=== PATIENT | female | born 1945 | race Caucasian/White ===

== ENCOUNTER → 2016-12-20 | Outpatient (CLI) | payer MEDICARE, MEDICAID | LOC: LAB 05:05 | DX: J44.9 Chronic obstructive pulmonary disease, unspecified (principal); D64.9 Anemia, unspecified; Z79.84 Long term (current) use of oral hypoglycemic drugs ==

== ENCOUNTER 2017-01-31 09:47 | Emergency (ER) | payer MEDICARE, MEDICAID ==
[~2017-01-31] VITALS: Ht 152.4 cm; Wt 84.1 kg
[2017-01-31 10:20] LABS: BASO # 0.1 (0.02-0.10); EOS # 0.1 (0.04-0.40); EOS % 0.4 % (1.0-5.0); HEMATOCRIT 37.1 % (37.0-47.0); HEMOGLOBIN 13.2 g/dL (12.5-16.0); LYMPH# 3.1 (1.50-4.00); MEAN CELL VOLUME 129 fl (78-100); MEAN CORPUSCULAR HEMOGLOBIN 46 pg (27-31); MEAN CORPUSCULAR HGB CONC 36 g/dL (33-37); MEAN PLATELET VOLUME 9.3 fl (7.4-10.4); MONO # 1.6 (0.20-0.80); NEU # 9.2 (1.40-6.50); PLATELET COUNT 606 K/mm3 (130-400); RED BLOOD COUNT 2.87 M/mm3 (4.10-5.30); RED CELL DISTRIBUTION WIDTH 11.2 % (11.5-14.5); WHITE BLOOD COUNT 14.2 K/mm3 (4.8-10.8)
[2017-01-31 10:33] LABS: ALBUMIN 4.5 g/dL (3.5-5.0); CALCIUM 9.6 mg/dL (8.4-10.2); POTASSIUM 3.9 mmol/L (3.6-5.0); TOTAL BILIRUBIN 0.8 mg/dL (0.2-1.3); TOTAL PROTEIN 7.5 g/dL (6.3-8.2)
[2017-01-31 11:04] LABS: URINE APPEARANCE CLEAR; URINE BILIRUBIN NEGATIVE (NEGATIVE); URINE COLOR YELLOW; URINE GLUCOSE NEGATIVE (NEGATIVE); URINE KETONE NEGATIVE (NEGATIVE); URINE LEUKOCYTE ESTERASE NEGATIVE (NEGATIVE); URINE NITRATE NEGATIVE (NEGATIVE); URINE PROTEIN(semi-quant) 2+ mg/dL (NEGATIVE); URINE UROBILINOGEN NORMAL (NORMAL)
[2017-01-31 11:05] LABS: URINE BLOOD 50 ery/uL (NEGATIVE); URINE MUCUS PRESENT (NOT PRESENT)
[2017-01-31] MEDS ORDERED: FLUOXETINE HCL20 MG PO (12:54)
[2017-01-31] MEDS ORDERED: CONZIP100 MG PO (12:55)
[2017-01-31] MEDS ORDERED: ULTRAM50 M1 PO (12:55)
[2017-01-31] MEDS ORDERED: FEOSOL325 MG PO (12:55)
[2017-01-31] MEDS ORDERED: DULCOLAX10 M1 RC (12:56)
[2017-01-31] MEDS ORDERED: MIRALAX17 GM PO (12:56)
[2017-01-31] MEDS ORDERED: ALDACTONE 25MG25 MG PO (12:56)
[2017-01-31] MEDS ORDERED: B-1100 M1 PO (12:57)
[2017-01-31] MEDS ORDERED: WELLBUTRIN SR100 M4 PO (12:58)
[2017-01-31] MEDS ORDERED: SYNTHROID0.05 MG PO (12:58)
[2017-01-31] MEDS ORDERED: ADULT LOW DOSE81 MG PO (12:59)
[2017-01-31] MEDS ORDERED: NATURE'S BOUNTY1 TAB PO (13:00)
[2017-01-31] MEDS ORDERED: FEXOFENADINE H180 M1 PO (13:00)
[2017-01-31] MEDS ORDERED: FOLIC ACID1 MG PO (13:01)
[2017-01-31] MEDS ORDERED: MOBIC15 M1 PO (13:01)
[2017-01-31] MEDS ORDERED: OMEPRAZOLE D/R20 MG PO (13:01)
[2017-01-31] MEDS ORDERED: THERMOTABS 2871 TA1 PO (13:02)
[2017-01-31] MEDS ORDERED: DESYREL 50MG50 MG PO (13:02)
[2017-01-31] MEDS ORDERED: HYDROXYUREA500 M1 PO (13:02)
[2017-01-31] MEDS ORDERED: OXYCODONE HYDROC5 M1 PO (13:03)
[2017-01-31] MEDS ORDERED: COLACE100 M1 PO (13:03)
[2017-01-31] MEDS ORDERED: KEPPRA 500MG500 MG PO (15:06)
[2017-01-31] MEDS ORDERED: FLAGYL500 M1 PO (15:06)
[2017-01-31 15:15] VITALS: BP 165/77
[2017-02-01] MEDS ORDERED: OXYCODONE HYDROC5 M1 PO (11:24)
== END 2017-01-31 15:38 | disposition home or self-care (01) ==
LOC: ED 09:47
PROVIDERS: Physician Assistant
DX: R56.9 Unspecified convulsions (principal); G89.29 Other chronic pain; A59.00 Urogenital trichomoniasis, unspecified; E87.1 Hypo-osmolality and hyponatremia; I10 Essential (primary) hypertension; K21.9 Gastro-esophageal reflux disease without esophagitis; E03.9 Hypothyroidism, unspecified; D46.9 Myelodysplastic syndrome, unspecified; F31.9 Bipolar disorder, unspecified; F20.9 Schizophrenia, unspecified; D64.9 Anemia, unspecified; J44.9 Chronic obstructive pulmonary disease, unspecified; M81.0 Age-related osteoporosis without current pathological fracture
CPT/HCPCS: J1953; J2060; J3360

== ENCOUNTER 2017-02-01 10:07 | Emergency (ER) | payer MEDICARE, MEDICAID ==
[~2017-02-01] VITALS: Ht 152.4 cm; Wt 84.1 kg
[~2017-02-01 10:07] MED LIST: ADULT LOW DOSE81 MG PO; ALDACTONE 25MG25 MG PO; B-1100 M1 PO; COLACE100 M1 PO; CONZIP100 MG PO; DESYREL 50MG50 MG PO; DULCOLAX10 M1 RC; FEOSOL325 MG PO; FEXOFENADINE H180 M1 PO; FLAGYL500 M1 PO; FLUOXETINE HCL20 MG PO; FOLIC ACID1 MG PO; HYDROXYUREA500 M1 PO; KEPPRA 500MG500 MG PO; MIRALAX17 GM PO; MOBIC15 M1 PO; NATURE'S BOUNTY1 TAB PO; OMEPRAZOLE D/R20 MG PO; OXYCODONE HYDROC5 M1 PO; SYNTHROID0.05 MG PO; THERMOTABS 2871 TA1 PO; ULTRAM50 M1 PO; WELLBUTRIN SR100 M4 PO
[2017-02-01] MEDS ORDERED: OXYCODONE HYDROC5 M1 PO (11:24)
[2017-02-01 12:03] VITALS: BP 130/72
== END 2017-02-01 11:44 ==
LOC: ED 10:07
DX: X58.XXXD Exposure to other specified factors, subsequent encounter (principal); S42.302D Unspecified fracture of shaft of humerus, left arm, subsequent encounter for fracture with routine healing; I10 Essential (primary) hypertension; G40.909 Epilepsy, unspecified, not intractable, without status epilepticus; A59.00 Urogenital trichomoniasis, unspecified; K21.9 Gastro-esophageal reflux disease without esophagitis; F31.9 Bipolar disorder, unspecified; F20.9 Schizophrenia, unspecified; B19.20 Unspecified viral hepatitis C without hepatic coma; D64.9 Anemia, unspecified; J44.9 Chronic obstructive pulmonary disease, unspecified; M81.0 Age-related osteoporosis without current pathological fracture; E03.9 Hypothyroidism, unspecified; Z88.5 Allergy status to narcotic agent; Z87.891 Personal history of nicotine dependence

== ENCOUNTER → 2017-04-18 | Outpatient (CLI) | payer MEDICARE | LOC: RAD 08:59 | DX: S42.322A Displaced transverse fracture of shaft of humerus, left arm, initial encounter for closed fracture (principal) ==

== ENCOUNTER → 2017-05-16 | Outpatient (CLI) | payer MEDICARE | LOC: RAD 08:59 | DX: S42.322A Displaced transverse fracture of shaft of humerus, left arm, initial encounter for closed fracture (principal); Z96.612 Presence of left artificial shoulder joint ==

== ENCOUNTER → 2017-06-21 | Outpatient (CLI) | payer MEDICARE ==
[2017-06-21 06:15] LABS: HEMATOCRIT 32.2 % (37.0-47.0); RED BLOOD COUNT 2.48 M/mm3 (4.10-5.30); RED CELL DISTRIBUTION WIDTH 13.5 % (11.5-14.5)
[2017-06-23 00:03] LABS: FOLATE (FOLIC ACID) 16.1 ng/mL (7.0-31.4)
== END ==
LOC: LAB 05:15
PROVIDERS: Family Medicine
DX: D64.9 Anemia, unspecified (principal)

== ENCOUNTER → 2017-06-27 | Outpatient (CLI) | payer MEDICARE | LOC: RAD 09:21 | DX: S46.011A Strain of muscle(s) and tendon(s) of the rotator cuff of right shoulder, initial encounter (principal); M19.011 Primary osteoarthritis, right shoulder; M85.811 Other specified disorders of bone density and structure, right shoulder ==

== ENCOUNTER 2017-07-06 11:00 | Emergency (ER) | payer MEDICARE ==
[~2017-07-06] VITALS: Wt 82.0 kg
[2017-07-06] MEDS ORDERED: ALLEGRA ALLERG180 MG PO (11:27)
[2017-07-06] MEDS ORDERED: BENADRYL ALLERG25 M2 PO (11:29)
[2017-07-06] MEDS ORDERED: MS CONTIN 115 MG/TAB PO (11:31)
[2017-07-06] MEDS ORDERED: PEPCID 20MG TAB20 MG PO (11:33)
[2017-07-06] MEDS ORDERED: PERPHENAZINE4 M1 PO (11:33)
[2017-07-06] MEDS ORDERED: QUETIAPINE FUM200 M1 PO (11:35)
[2017-07-06] MEDS ORDERED: ALDACTONE 25MG25 MG PO (11:36)
[2017-07-06] MEDS ORDERED: VITAMIN B1 87 M1 TAB (11:37)
[2017-07-06] MEDS ORDERED: VALIUM 2MG T2 MG/TAB PO (11:37)
[2017-07-06] MEDS ORDERED: SUNMARK VITAMIN1 TAB PO (11:38)
[2017-07-06 12:05] LABS: EOS # 0.1 (0.04-0.40); EOS % 1.1 % (1.0-5.0); HEMATOCRIT 31.1 % (37.0-47.0); HEMOGLOBIN 10.9 g/dL (12.5-16.0); LYMPH# 0.9 (1.50-4.00); MEAN CORPUSCULAR HGB CONC 35 g/dL (33-37); MEAN PLATELET VOLUME 9.8 fl (7.4-10.4); MONO # 0.6 (0.20-0.80); NEU # 4.8 (1.40-6.50); PLATELET COUNT 303 K/mm3 (130-400); RED BLOOD COUNT 2.38 M/mm3 (4.10-5.30); RED CELL DISTRIBUTION WIDTH 13.1 % (11.5-14.5); WHITE BLOOD COUNT 6.5 K/mm3 (4.8-10.8)
[2017-07-06 12:06] LABS: MEAN CELL VOLUME 131 fl (78-100); MEAN CORPUSCULAR HEMOGLOBIN 46 pg (27-31)
[2017-07-06 12:17] LABS: ALBUMIN 3.5 g/dL (3.5-5.0); BUN/CREATININE RATIO 10.8 (6.0-26.0); CALCIUM 8.2 mg/dL (8.4-10.2); POTASSIUM 4.5 mmol/L (3.6-5.0); TOTAL BILIRUBIN 0.3 mg/dL (0.2-1.3); TOTAL PROTEIN 6.4 g/dL (6.3-8.2)
[2017-07-06 12:52] LABS: PH-URINE 6.5 (5.0 - 8.0); URINE APPEARANCE CLEAR; URINE COLOR YELLOW; URINE PROTEIN(semi-quant) NEGATIVE (NEGATIVE)
[2017-07-06 12:53] LABS: URINE BILIRUBIN NEGATIVE (NEGATIVE); URINE BLOOD NEGATIVE (NEGATIVE); URINE GLUCOSE NEGATIVE (NEGATIVE); URINE KETONE NEGATIVE (NEGATIVE); URINE NITRATE NEGATIVE (NEGATIVE); URINE UROBILINOGEN NORMAL (NORMAL); URINE WBC 0-1 /hpf (0-3)
[2017-07-06 12:54] LABS: URINE LEUKOCYTE ESTERASE TRACE (NEGATIVE)
[2017-07-06] MEDS ORDERED: ZITHROMAX TRI-500 MG PO (14:20)
[2017-07-06] MEDS ORDERED: IPRATROPIUM BROM3 M1 IH (14:20)
[2017-07-06] MEDS ORDERED: CEFDINIR300 MG PO (14:20)
[2017-07-06 14:26] VITALS: BP 123/64
== END 2017-07-06 14:26 | disposition home or self-care (01) ==
LOC: ED 11:00
PROVIDERS: Physician Assistant
DX: R91.8 Other nonspecific abnormal finding of lung field (principal); R09.02 Hypoxemia; F20.9 Schizophrenia, unspecified; Z99.81 Dependence on supplemental oxygen; J44.9 Chronic obstructive pulmonary disease, unspecified; I10 Essential (primary) hypertension; F31.9 Bipolar disorder, unspecified; G40.909 Epilepsy, unspecified, not intractable, without status epilepticus; K21.9 Gastro-esophageal reflux disease without esophagitis

== ENCOUNTER → 2017-07-11 | Outpatient (CLI) | payer MEDICARE ==
[2017-07-06 14:26] VITALS: BP 123/64
[~2017-07-11] MED LIST changes: +ALLEGRA ALLERG180 MG PO; +BENADRYL ALLERG25 M2 PO; +CEFDINIR300 MG PO; +IPRATROPIUM BROM3 M1 IH; +MS CONTIN 115 MG/TAB PO; +PEPCID 20MG TAB20 MG PO; +PERPHENAZINE4 M1 PO; +QUETIAPINE FUM200 M1 PO; +SUNMARK VITAMIN1 TAB PO; +VALIUM 2MG T2 MG/TAB PO; +VITAMIN B1 87 M1 TAB; +ZITHROMAX TRI-500 MG PO
[2017-07-11 06:32] LABS: ALBUMIN 3.3 g/dL (3.5-5.0); BUN/CREATININE RATIO 11.6 (6.0-26.0); CALCIUM 8.2 mg/dL (8.4-10.2); POTASSIUM 5.1 mmol/L (3.6-5.0); TOTAL BILIRUBIN 0.2 mg/dL (0.2-1.3); TOTAL PROTEIN 5.9 g/dL (6.3-8.2)
[2017-07-11 06:42] LABS: HEMATOCRIT 30.4 % (37.0-47.0); HEMOGLOBIN 10.4 g/dL (12.5-16.0); MEAN PLATELET VOLUME 9.6 fl (7.4-10.4); RED BLOOD COUNT 2.31 M/mm3 (4.10-5.30); RED CELL DISTRIBUTION WIDTH 13.4 % (11.5-14.5); WHITE BLOOD COUNT 4.2 K/mm3 (4.8-10.8)
== END ==
LOC: LAB 05:25
PROVIDERS: Family Medicine
DX: Z51.81 Encounter for therapeutic drug level monitoring (principal); Z79.899 Other long term (current) drug therapy; E03.9 Hypothyroidism, unspecified

== ENCOUNTER → 2017-09-27 | Outpatient (CLI) | payer MEDICARE | LOC: LAB 05:40 | DX: E56.9 Vitamin deficiency, unspecified (principal) ==

== ENCOUNTER → 2017-11-20 | Outpatient (CLI) | payer MEDICARE ==
[2017-11-20 14:19] LABS: URINE APPEARANCE CLEAR; URINE BILIRUBIN NEGATIVE (NEGATIVE); URINE COLOR YELLOW; URINE GLUCOSE NEGATIVE (NEGATIVE); URINE KETONE NEGATIVE (NEGATIVE); URINE NITRATE NEGATIVE (NEGATIVE); URINE PROTEIN(semi-quant) TRACE mg/dL (NEGATIVE); URINE UROBILINOGEN NORMAL (NORMAL)
[2017-11-20 14:20] LABS: URINE BLOOD NEGATIVE (NEGATIVE); URINE LEUKOCYTE ESTERASE NEGATIVE (NEGATIVE); URINE WBC 0-1 /hpf (0-3)
== END ==
LOC: LAB 13:15
PROVIDERS: Family Medicine
DX: R30.9 Painful micturition, unspecified (principal); R82.90 Unspecified abnormal findings in urine

== ENCOUNTER → 2017-11-21 | Outpatient (CLI) | payer MEDICARE ==
[2017-11-21 20:43] LABS: PH-URINE 6.5 (5.0 - 8.0); URINE APPEARANCE CLEAR; URINE BILIRUBIN NEGATIVE (NEGATIVE); URINE BLOOD NEGATIVE (NEGATIVE); URINE COLOR YELLOW; URINE GLUCOSE NEGATIVE (NEGATIVE); URINE KETONE NEGATIVE (NEGATIVE); URINE NITRATE NEGATIVE (NEGATIVE); URINE PROTEIN(semi-quant) NEGATIVE (NEGATIVE); URINE UROBILINOGEN NORMAL (NORMAL)
[2017-11-21 20:51] LABS: URINE LEUKOCYTE ESTERASE TRACE (NEGATIVE)
== END ==
LOC: LAB 16:48
PROVIDERS: Family Medicine
DX: R30.9 Painful micturition, unspecified (principal); R82.90 Unspecified abnormal findings in urine

== ENCOUNTER → 2017-11-27 | Outpatient (CLI) | payer MEDICARE ==
[2017-11-27 05:42] LABS: ALBUMIN 3.2 g/dL (3.5-5.0); CALCIUM 8.4 mg/dL (8.4-10.2); POTASSIUM 4.4 mmol/L (3.6-5.0); TOTAL BILIRUBIN 0.5 mg/dL (0.2-1.3); TOTAL PROTEIN 5.8 g/dL (6.3-8.2)
== END ==
LOC: LAB 05:15
PROVIDERS: Family Medicine
DX: M62.81 Muscle weakness (generalized) (principal)

== ENCOUNTER → 2017-12-19 | Outpatient (CLI) | payer MEDICARE ==
[2017-12-19 06:57] LABS: CALCIUM 8.4 mg/dL (8.4-10.2); POTASSIUM 4.5 mmol/L (3.6-5.0)
== END ==
LOC: LAB 06:22
PROVIDERS: Family Medicine
DX: E87.1 Hypo-osmolality and hyponatremia (principal)

== ENCOUNTER → 2018-01-12 | Outpatient (CLI) | payer MEDICARE ==
[2018-01-12 15:17] LABS: HEMATOCRIT 36.7 % (37.0-47.0); HEMOGLOBIN 12.6 g/dL (12.5-16.0); MEAN PLATELET VOLUME 9.9 fl (7.4-10.4); RED BLOOD COUNT 2.85 M/mm3 (4.10-5.30); RED CELL DISTRIBUTION WIDTH 11.4 % (11.5-14.5); WHITE BLOOD COUNT 5.3 K/mm3 (4.8-10.8)
== END ==
LOC: LAB 13:40
PROVIDERS: Family Medicine
DX: I10 Essential (primary) hypertension (principal); F20.9 Schizophrenia, unspecified; E03.9 Hypothyroidism, unspecified

== ENCOUNTER → 2018-01-14 | Outpatient (CLI) | payer MEDICARE ==
[2018-01-11 08:58] LABS: ALBUMIN 3.5 g/dL (3.5-5.0); CALCIUM 8.6 mg/dL (8.4-10.2); POTASSIUM 4.6 mmol/L (3.6-5.0); TOTAL BILIRUBIN 0.6 mg/dL (0.2-1.3); TOTAL PROTEIN 6.3 g/dL (6.3-8.2)
== END ==
LOC: LAB 01-11 07:15
PROVIDERS: Family Medicine
DX: I10 Essential (primary) hypertension (principal); F20.9 Schizophrenia, unspecified; E03.9 Hypothyroidism, unspecified

== ENCOUNTER 2018-01-31 11:34 | Emergency (ER) | payer MEDICARE ==
[~2018-01-31] VITALS: Ht 152.4 cm; Wt 85.9 kg
[2018-01-31] MEDS ORDERED: ASPIRIN ADULT L81 M3 PO (12:41)
[2018-01-31] MEDS ORDERED: FLEET ENEM1 BOT/133 RC (12:42)
[2018-01-31] MEDS ORDERED: FLONASE SENSIM5.9 ML NS (12:43)
[2018-01-31] MEDS ORDERED: IMODIUM A-D2 M2 PO (12:44)
[2018-01-31] MEDS ORDERED: FLORAJEN A20 Billion PO (12:44)
[2018-01-31] MEDS ORDERED: GOOD NEIGH1200 MG/15 PO (12:45)
[2018-01-31] MEDS ORDERED: MOVANTIK25 MG PO (12:45)
[2018-01-31] MEDS ORDERED: NYSTATIN15 GM TP (12:46)
[2018-01-31] MEDS ORDERED: SARNA ANTI-ITC222 ML TP (12:46)
[2018-01-31] MEDS ORDERED: PROTONIX TR40 M1 PO (12:46)
[2018-01-31] MEDS ORDERED: SENNA8.6 M1 PO (12:47)
[2018-01-31] MEDS ORDERED: TYLENOL EXTRA500 M2 PO (12:48)
[2018-01-31] MEDS ORDERED: SYNTHROID0.05 MG PO (12:48)
[2018-01-31] MEDS ORDERED: ZOFRAN4 M2 PO (12:49)
[2018-01-31 15:31] VITALS: BP 136/67
== END 2018-01-31 15:30 | disposition short-term general hospital (02) ==
LOC: ED 11:34
DX: S43.014A Anterior dislocation of right humerus, initial encounter (principal); S42.291A Other displaced fracture of upper end of right humerus, initial encounter for closed fracture; M84.4 Pathological fracture, not elsewhere classified; W01.0XXA Fall on same level from slipping, tripping and stumbling without subsequent striking against object, initial encounter; Y92.009 Unspecified place in unspecified non-institutional (private) residence as the place of occurrence of the external cause; Z79.899 Other long term (current) drug therapy; Z79.82 Long term (current) use of aspirin; K75.9 Inflammatory liver disease, unspecified
CPT/HCPCS: J2250; J2405; J3010

== ENCOUNTER 2018-02-27 18:08 | Emergency (ER) | payer MEDICARE ==
[~2018-02-27] VITALS: Wt 90.2 kg
[~2018-02-27 18:08] MED LIST changes: +ASPIRIN ADULT L81 M3 PO; +FLEET ENEM1 BOT/133 RC; +FLONASE SENSIM5.9 ML NS; +FLORAJEN A20 Billion PO; +GOOD NEIGH1200 MG/15 PO; +IMODIUM A-D2 M2 PO; +MOVANTIK25 MG PO; -MS CONTIN 115 MG/TAB PO; +MS CONTIN15 MG PO; +NYSTATIN15 GM TP; +PROTONIX TR40 M1 PO; -QUETIAPINE FUM200 M1 PO; +QUETIAPINE FUM400 M1 PO; +SARNA ANTI-ITC222 ML TP; +SENNA8.6 M1 PO; +TYLENOL EXTRA500 M2 PO; +ZOFRAN4 M2 PO
[2018-02-27 19:52] LABS: HEMATOCRIT 39.2 % (37.0-47.0); HEMOGLOBIN 13.3 g/dL (12.5-16.0); MEAN CORPUSCULAR HGB CONC 34 g/dL (33-37); MEAN PLATELET VOLUME 9.7 fl (7.4-10.4); PLATELET COUNT 371 K/mm3 (130-400); RED BLOOD COUNT 3.05 M/mm3 (4.10-5.30); RED CELL DISTRIBUTION WIDTH 11.5 % (11.5-14.5); WHITE BLOOD COUNT 4.8 K/mm3 (4.8-10.8)
[2018-02-27 20:02] LABS: MEAN CELL VOLUME 129 fl (78-100); MEAN CORPUSCULAR HEMOGLOBIN 44 pg (27-31)
[2018-02-27] MEDS ORDERED: IPRATROPIUM BROM3 M1 IH (20:03)
[2018-02-27] MEDS ORDERED: NYSTATIN15 GM TOP (20:06)
[2018-02-27] MEDS ORDERED: THERMOTABS 2871 TA1 PO (20:08)
[2018-02-27 20:22] LABS: LYMPHOCYTE 19 % (20-51); NEUTROPHILS 65 % (42-75)
[2018-02-27 20:23] LABS: MONOCYTE 13 % (3-10); POLYCHROMASIA 1+
[2018-02-27 20:27] LABS: TROPONIN-I < 0.03 ng/mL (0.00-0.06)
[2018-02-27 20:28] LABS: URINE APPEARANCE CLEAR; URINE BILIRUBIN NEGATIVE (NEGATIVE); URINE BLOOD NEGATIVE (NEGATIVE); URINE COLOR YELLOW; URINE GLUCOSE NEGATIVE (NEGATIVE); URINE KETONE NEGATIVE (NEGATIVE); URINE LEUKOCYTE ESTERASE NEGATIVE (NEGATIVE); URINE NITRATE NEGATIVE (NEGATIVE); URINE PROTEIN(semi-quant) NEGATIVE (NEGATIVE); URINE UROBILINOGEN NORMAL (NORMAL); URINE WBC 0-1 /hpf (0-3)
[2018-02-27 20:41] LABS: ALBUMIN 4.4 g/dL (3.5-5.0); POTASSIUM 4.1 mmol/L (3.6-5.0); TOTAL BILIRUBIN 0.5 mg/dL (0.2-1.3); TOTAL PROTEIN 7.2 g/dL (6.3-8.2)
[2018-02-27] MEDS ORDERED: CHLORASEPTIC S177 ML MM (23:13)
[2018-02-27] MEDS ORDERED: FLUTICASON0.05 MG/AC NS (23:13)
[2018-02-27] MEDS ORDERED: AMOXIL500 M1 PO (23:13)
[2018-02-27 23:30] VITALS: BP 152/76
== END 2018-02-27 23:30 | disposition home or self-care (01) ==
LOC: ED 18:08
PROVIDERS: Physician Assistant
DX: J02.9 Acute pharyngitis, unspecified (principal); J44.9 Chronic obstructive pulmonary disease, unspecified; J32.0 Chronic maxillary sinusitis; Z87.891 Personal history of nicotine dependence; G40.909 Epilepsy, unspecified, not intractable, without status epilepticus; F20.9 Schizophrenia, unspecified; F31.9 Bipolar disorder, unspecified; E03.9 Hypothyroidism, unspecified; K21.9 Gastro-esophageal reflux disease without esophagitis; Z99.81 Dependence on supplemental oxygen; Z79.82 Long term (current) use of aspirin; Z79.899 Other long term (current) drug therapy

== ENCOUNTER → 2018-03-08 | Outpatient (CLI) | payer MEDICARE ==
[2018-02-27 23:30] VITALS: BP 152/76
[~2018-03-08] MED LIST changes: +AMOXIL500 M1 PO; +CHLORASEPTIC S177 ML MM; +FLUTICASON0.05 MG/AC NS; +NYSTATIN15 GM TOP
[2018-03-08 09:11] LABS: HEMATOCRIT 39.1 % (37.0-47.0); HEMOGLOBIN 13.7 g/dL (12.5-16.0); MEAN PLATELET VOLUME 9.8 fl (7.4-10.4); RED BLOOD COUNT 3.09 M/mm3 (4.10-5.30); RED CELL DISTRIBUTION WIDTH 11.3 % (11.5-14.5); WHITE BLOOD COUNT 6.3 K/mm3 (4.8-10.8)
== END ==
LOC: LAB 08:10
PROVIDERS: Family Medicine
DX: D69.6 Thrombocytopenia, unspecified (principal)

== ENCOUNTER → 2018-06-05 | Outpatient (CLI) | payer MEDICARE, MEDICAID ==
[2018-06-05 08:24] LABS: ALBUMIN 3.8 g/dL (3.5-5.0); POTASSIUM 4.6 mmol/L (3.6-5.0); TOTAL BILIRUBIN 0.6 mg/dL (0.2-1.3); TOTAL PROTEIN 6.7 g/dL (6.3-8.2)
[2018-06-05 09:10] LABS: BASO # 0.1 (0.02-0.10); EOS # 0.1 (0.04-0.40); HEMATOCRIT 35.7 % (37.0-47.0); HEMOGLOBIN 12.3 g/dL (12.5-16.0); LYMPH# 1.1 (1.50-4.00); MEAN CORPUSCULAR HGB CONC 35 g/dL (33-37); MEAN PLATELET VOLUME 10.2 fl (7.4-10.4); MONO # 0.7 (0.20-0.80); NEU # 3.7 (1.40-6.50); PLATELET COUNT 362 K/mm3 (130-400); RED BLOOD COUNT 2.73 M/mm3 (4.10-5.30); RED CELL DISTRIBUTION WIDTH 12.1 % (11.5-14.5); WHITE BLOOD COUNT 5.6 K/mm3 (4.8-10.8)
[2018-06-05 09:11] LABS: MEAN CELL VOLUME 131 fl (78-100); MEAN CORPUSCULAR HEMOGLOBIN 45 pg (27-31)
== END ==
LOC: LAB 06:25
PROVIDERS: Internal Medicine
DX: D46.9 Myelodysplastic syndrome, unspecified (principal)

== ENCOUNTER 2018-07-12 12:40 | Emergency (ER) | payer MEDICARE, MEDICAID ==
[~2018-07-12 12:40] MED LIST changes: -GUAIFENESIN ER600 M1 PO
[2018-07-12] MEDS ORDERED: GUAIFENESIN ER600 M1 PO (13:10)
[2018-07-12 14:24] LABS: EOS # 0.1 (0.04-0.40); EOS % 1.9 % (1.0-5.0); HEMATOCRIT 36.5 % (37.0-47.0); HEMOGLOBIN 12.3 g/dL (12.5-16.0); LYMPH# 1.1 (1.50-4.00); MEAN CORPUSCULAR HGB CONC 34 g/dL (33-37); MEAN PLATELET VOLUME 9.4 fl (7.4-10.4); MONO # 0.7 (0.20-0.80); NEU # 4.3 (1.40-6.50); PLATELET COUNT 339 K/mm3 (130-400); RED BLOOD COUNT 2.76 M/mm3 (4.10-5.30); RED CELL DISTRIBUTION WIDTH 11.5 % (11.5-14.5); WHITE BLOOD COUNT 6.3 K/mm3 (4.8-10.8)
[2018-07-12 14:45] LABS: MEAN CELL VOLUME 132 fl (78-100); MEAN CORPUSCULAR HEMOGLOBIN 45 pg (27-31)
[2018-07-12 15:01] LABS: PROTHROMBIN TIME 10.3 SECONDS (9.0-12.0)
[2018-07-12 15:03] LABS: ALBUMIN 3.8 g/dL (3.5-5.0); CALCIUM 8.5 mg/dL (8.4-10.2); POTASSIUM 4.4 mmol/L (3.6-5.0); TOTAL BILIRUBIN 0.3 mg/dL (0.2-1.3); TOTAL PROTEIN 6.4 g/dL (6.3-8.2)
[2018-07-12 16:36] VITALS: BP 156/87
== END 2018-07-12 15:50 | disposition home or self-care (01) ==
LOC: ED 12:40
PROVIDERS: Nurse Practitioner Primary Care
DX: R10.84 Generalized abdominal pain (principal); K21.9 Gastro-esophageal reflux disease without esophagitis; J44.9 Chronic obstructive pulmonary disease, unspecified; F20.9 Schizophrenia, unspecified; F06.2 Psychotic disorder with delusions due to known physiological condition; F31.9 Bipolar disorder, unspecified; E03.9 Hypothyroidism, unspecified; D64.9 Anemia, unspecified; Z96.619 Presence of unspecified artificial shoulder joint; Z79.82 Long term (current) use of aspirin; Z79.51 Long term (current) use of inhaled steroids
CPT/HCPCS: Q9967

== ENCOUNTER → 2018-07-12 | Outpatient (CLI) | payer MEDICARE, MEDICAID ==
[~2018-07-12] MED LIST changes: +GUAIFENESIN ER600 M1 PO
[2018-07-12 07:20] LABS: ALBUMIN 4.4 g/dL (3.5-5.0); TOTAL BILIRUBIN 0.5 mg/dL (0.2-1.3); TOTAL PROTEIN 7.8 g/dL (6.3-8.2)
== END ==
LOC: LAB 06:50
PROVIDERS: Family Medicine
DX: S42.302A Unspecified fracture of shaft of humerus, left arm, initial encounter for closed fracture (principal); J30.9 Allergic rhinitis, unspecified; R25.1 Tremor, unspecified; E11.9 Type 2 diabetes mellitus without complications; E03.9 Hypothyroidism, unspecified; F20.9 Schizophrenia, unspecified; R11.0 Nausea

== ENCOUNTER → 2018-09-04 | Outpatient (CLI) | payer MEDICARE ==
[~2018-09-04] MED LIST changes: +GUAIFENESIN ER600 M1 PO; +LORAZEPAM0.5 M1 PO; +MS CONTIN 115 MG/TAB PO; +RT ADVAIR HFA 1112 G IH; +SUCRETS SORE THR2 MG MM; +TRAMADOL 50 MG TAB PO; +VOLTAREN GEL1% TP; +XYZAL5 MG PO
== END ==
LOC: RAD 13:16
DX: J43.9 Emphysema, unspecified (principal); R91.1 Solitary pulmonary nodule; G47.33 Obstructive sleep apnea (adult) (pediatric)

== ENCOUNTER 2018-09-07 16:53 | Emergency (ER) | payer MEDICARE ==
[~2018-09-07] VITALS: Ht 144.8 cm; Wt 91.5 kg
[~2018-09-07 16:53] MED LIST changes: -LORAZEPAM0.5 M1 PO; -MS CONTIN 115 MG/TAB PO; -RT ADVAIR HFA 1112 G IH; -SUCRETS SORE THR2 MG MM; -TRAMADOL 50 MG TAB PO; -VOLTAREN GEL1% TP; -XYZAL5 MG PO
[2018-09-07 17:15] VITALS: BP 153/83
[2018-09-07] MEDS ORDERED: LORAZEPAM0.5 M1 PO (17:42)
[2018-09-07] MEDS ORDERED: RT ADVAIR HFA 1112 G IH (17:43)
[2018-09-07] MEDS ORDERED: MS CONTIN 115 MG/TAB PO (17:44)
[2018-09-07] MEDS ORDERED: SUCRETS SORE THR2 MG MM (17:45)
[2018-09-07] MEDS ORDERED: TRAMADOL 50 MG TAB PO (17:47)
[2018-09-07] MEDS ORDERED: VOLTAREN GEL1% TP (17:50)
[2018-09-07] MEDS ORDERED: XYZAL5 MG PO (17:51)
[2018-09-07 19:43] LABS: HEMATOCRIT 35.1 % (37.0-47.0); HEMOGLOBIN 11.7 g/dL (12.5-16.0); MEAN CORPUSCULAR HGB CONC 33 g/dL (33-37); MEAN PLATELET VOLUME 9.5 fl (7.4-10.4); PLATELET COUNT 332 K/mm3 (130-400); RED BLOOD COUNT 2.68 M/mm3 (4.10-5.30); RED CELL DISTRIBUTION WIDTH 12.3 % (11.5-14.5); WHITE BLOOD COUNT 5.8 K/mm3 (4.8-10.8)
[2018-09-07 20:09] LABS: MEAN CELL VOLUME 131 fl (78-100); MEAN CORPUSCULAR HEMOGLOBIN 44 pg (27-31)
[2018-09-07 20:11] LABS: CALCIUM 8.4 mg/dL (8.3-10.5)
[2018-09-07 20:38] LABS: LYMPHOCYTE 11 % (20-51); MONOCYTE 15 % (3-10); NEUTROPHILS 66 % (42-75)
== END 2018-09-07 21:30 | disposition home or self-care (01) ==
LOC: ED 16:53
PROVIDERS: Family Medicine
DX: R06.00 Dyspnea, unspecified (principal); M79.604 Pain in right leg; K21.9 Gastro-esophageal reflux disease without esophagitis; J44.9 Chronic obstructive pulmonary disease, unspecified; F31.9 Bipolar disorder, unspecified; F20.9 Schizophrenia, unspecified; R56.9 Unspecified convulsions; M81.0 Age-related osteoporosis without current pathological fracture; D69.6 Thrombocytopenia, unspecified; Z79.51 Long term (current) use of inhaled steroids; Z79.82 Long term (current) use of aspirin; W01.0XXA Fall on same level from slipping, tripping and stumbling without subsequent striking against object, initial encounter; Y93.E1 Activity, personal bathing and showering; Y92.002 Bathroom of unspecified non-institutional (private) residence as the place of occurrence of the external cause

== ENCOUNTER → 2018-12-04 | Outpatient (CLI) | payer MEDICARE ==
[~2018-12-04] MED LIST changes: +LORAZEPAM0.5 M1 PO; +MS CONTIN 115 MG/TAB PO; +RT ADVAIR HFA 1112 G IH; +SUCRETS SORE THR2 MG MM; +TRAMADOL 50 MG TAB PO; +VOLTAREN GEL1% TP; +XYZAL5 MG PO
== END ==
LOC: LAB 05:40
PROVIDERS: Internal Medicine
DX: C34.91 Malignant neoplasm of unspecified part of right bronchus or lung (principal)

== ENCOUNTER → 2018-12-06 | Outpatient (CLI) | payer MEDICARE ==
[2018-12-06 07:16] LABS: EOS # 0.1 (0.04-0.40); EOS % 2.4 % (1.0-5.0); HEMATOCRIT 36.1 % (37.0-47.0); HEMOGLOBIN 11.8 g/dL (12.5-16.0); LYMPH# 0.9 (1.50-4.00); MEAN CORPUSCULAR HGB CONC 33 g/dL (33-37); MEAN PLATELET VOLUME 9.6 fl (7.4-10.4); MONO # 0.6 (0.20-0.80); NEU # 3.9 (1.40-6.50); PLATELET COUNT 303 K/mm3 (130-400); RED BLOOD COUNT 2.72 M/mm3 (4.10-5.30); RED CELL DISTRIBUTION WIDTH 13.6 % (11.5-14.5); WHITE BLOOD COUNT 5.5 K/mm3 (4.8-10.8)
[2018-12-06 07:42] LABS: MEAN CELL VOLUME 133 fl (78-100); MEAN CORPUSCULAR HEMOGLOBIN 43 pg (27-31)
== END ==
LOC: LAB 06:45
PROVIDERS: Family Medicine
DX: D46.9 Myelodysplastic syndrome, unspecified (principal)

== ENCOUNTER → 2019-01-13 | Outpatient (CLI) | payer MEDICARE ==
[2019-01-13 08:17] LABS: ALBUMIN 3.9 g/dL (3.4-4.8); CALCIUM 9.2 mg/dL (8.3-10.5); POTASSIUM 4.3 mmol/L (3.5-5.1); TOTAL BILIRUBIN 0.7 mg/dL (0.2-1.2); TOTAL PROTEIN 6.7 g/dL (6.2-8.1)
[2019-01-13 08:24] LABS: HEMATOCRIT 39.1 % (37.0-47.0); MEAN PLATELET VOLUME 10.3 fl (7.4-10.4); RED BLOOD COUNT 2.94 M/mm3 (4.10-5.30); RED CELL DISTRIBUTION WIDTH 12.8 % (11.5-14.5)
== END ==
LOC: LAB 07:37
PROVIDERS: Family Medicine
DX: Z51.81 Encounter for therapeutic drug level monitoring (principal); D64.9 Anemia, unspecified

== ENCOUNTER → 2019-01-14 | Outpatient (CLI) | payer MEDICARE ==
[2019-01-14 15:46] LABS: FOLATE (FOLIC ACID) 18.3 ng/mL (7.0-31.4)
== END ==
LOC: LAB 05:30
PROVIDERS: Family Medicine
DX: D64.9 Anemia, unspecified (principal)

== ENCOUNTER 2019-03-12 14:50 | Emergency (ER) | payer MEDICARE ==
[~2019-03-12] VITALS: Wt 96.3 kg
[~2019-03-12 14:50] MED LIST changes: -DESYREL 50MG50 MG PO; +DESYREL50 MG PO; +DULCOLAX S10 MG/SUPP RC; -DULCOLAX10 M1 RC; -FLUOXETINE HCL20 MG PO; +FLUOXETINE60 MG PO; -SUNMARK VITAMIN1 TAB PO
[2019-03-12 15:29] LABS: HEMATOCRIT 36.9 % (37.0-47.0); HEMOGLOBIN 12.4 g/dL (12.5-16.0); MEAN CORPUSCULAR HGB CONC 34 g/dL (33-37); MEAN PLATELET VOLUME 10.1 fl (7.4-10.4); PLATELET COUNT 170 K/mm3 (130-400); RED BLOOD COUNT 2.78 M/mm3 (4.10-5.30); RED CELL DISTRIBUTION WIDTH 12.7 % (11.5-14.5); WHITE BLOOD COUNT 4.2 K/mm3 (4.8-10.8)
[2019-03-12 15:38] LABS: MEAN CELL VOLUME 133 fl (78-100); MEAN CORPUSCULAR HEMOGLOBIN 45 pg (27-31)
[2019-03-12 15:47] LABS: ALBUMIN 3.6 g/dL (3.4-4.8); POTASSIUM 4.6 mmol/L (3.5-5.1)
[2019-03-12 15:48] LABS: CALCIUM 8.4 mg/dL (8.3-10.5)
[2019-03-12 15:50] LABS: TOTAL PROTEIN 5.6 g/dL (6.2-8.1)
[2019-03-12 15:51] LABS: TOTAL BILIRUBIN 0.4 mg/dL (0.2-1.2)
[2019-03-12] MEDS ORDERED: ATIVAN0.5 MG PO (16:21)
[2019-03-12 16:22] LABS: LYMPHOCYTE 12 % (20-51); MONOCYTE 12 % (3-10); NEUTROPHILS 73 % (42-75); POLYCHROMASIA 1+
[2019-03-12] MEDS ORDERED: IPRATROPIUM BROM3 M1 IH (16:23)
[2019-03-12] MEDS ORDERED: FLONASE ALLERG9.9 ML NS (16:25)
[2019-03-12] MEDS ORDERED: KEPPRA 500MG500 MG PO (16:27)
[2019-03-12] MEDS ORDERED: MECLIZINE PO (16:28)
[2019-03-12 16:50] VITALS: BP 133/73
== END 2019-03-12 16:59 | disposition other institution (70) ==
LOC: ED 14:50
PROVIDERS: Physician Assistant
DX: J44.1 Chronic obstructive pulmonary disease with (acute) exacerbation (principal); K21.9 Gastro-esophageal reflux disease without esophagitis; M81.0 Age-related osteoporosis without current pathological fracture; F31.9 Bipolar disorder, unspecified; D46.9 Myelodysplastic syndrome, unspecified; F20.9 Schizophrenia, unspecified; D69.6 Thrombocytopenia, unspecified; Z79.82 Long term (current) use of aspirin
CPT/HCPCS: J2930

== ENCOUNTER 2019-03-12 16:21 | Inpatient (IN) | payer MEDICARE ==
[~2019-03-12] VITALS: Ht 152.4 cm; Wt 96.0 kg
[~2019-03-12 16:21] MED LIST changes: +ATIVAN0.5 MG PO
[2019-03-12] MEDS ORDERED: IPRATROPIUM BROM3 M1 IH (16:23)
[2019-03-12] MEDS ORDERED: FLONASE ALLERG9.9 ML NS (16:25)
[2019-03-12] MEDS ORDERED: KEPPRA 500MG500 MG PO (16:27)
[2019-03-12] MEDS ORDERED: MECLIZINE PO (16:28)
[2019-03-12 17:11] VITALS: BP 133/73
[2019-03-12 17:17] VITALS: BP 110/68
[2019-03-12 18:10] VITALS: BP 133/73
[2019-03-12 21:00] LABS: URINE APPEARANCE CLEAR; URINE BILIRUBIN NEGATIVE (NEGATIVE); URINE BLOOD NEGATIVE (NEGATIVE); URINE COLOR YELLOW; URINE GLUCOSE NEGATIVE (NEGATIVE); URINE KETONE NEGATIVE (NEGATIVE); URINE LEUKOCYTE ESTERASE NEGATIVE (NEGATIVE); URINE NITRATE NEGATIVE (NEGATIVE); URINE PROTEIN(semi-quant) TRACE mg/dL (NEGATIVE); URINE UROBILINOGEN NORMAL (NORMAL); URINE WBC 0-1 /hpf (0-3)
[2019-03-12 21:44] VITALS: BP 146/79
--- NOTE | 2019-03-12 23:45 | NUR ---
Report received. Pt awake and completing neb tx when checked on rounds. Color good and resp. unlabored. Assessment done. Denied discomfort. Denied cough; informed of order for sputum specimen and will assist with collecting this should she have cough that may produce sputum. CPAP on after assessment. Call light in reach.
[2019-03-13 02:48] VITALS: BP 123/78
[2019-03-13 05:57] LABS: HEMATOCRIT 34.9 % (37.0-47.0); HEMOGLOBIN 11.8 g/dL (12.5-16.0); MEAN CORPUSCULAR HGB CONC 34 g/dL (33-37); MEAN PLATELET VOLUME 9.9 fl (7.4-10.4); PLATELET COUNT 205 K/mm3 (130-400); RED BLOOD COUNT 2.64 M/mm3 (4.10-5.30); RED CELL DISTRIBUTION WIDTH 12.2 % (11.5-14.5); WHITE BLOOD COUNT 4.6 K/mm3 (4.8-10.8)
[2019-03-13 06:11] VITALS: BP 145/78
[2019-03-13 06:24] LABS: MEAN CELL VOLUME 132 fl (78-100); MEAN CORPUSCULAR HEMOGLOBIN 45 pg (27-31)
[2019-03-13 06:42] LABS: LYMPHOCYTE 4 % (20-51); MONOCYTE 2 % (3-10); NEUTROPHILS 94 % (42-75)
[2019-03-13 06:44] LABS: POLYCHROMASIA 1+
[2019-03-13 06:45] LABS: OVALOCYTES 1+
[2019-03-13 06:53] LABS: POTASSIUM 4.6 mmol/L (3.5-5.1)
[2019-03-13 06:54] LABS: CALCIUM 8.4 mg/dL (8.3-10.5)
[2019-03-13 10:20] VITALS: BP 116/71
[2019-03-13 13:41] VITALS: BP 149/79
[2019-03-13 17:01] VITALS: BP 127/71
--- NOTE | 2019-03-13 18:55 | NUR ---
THIS RN WAS UNABLE TO COLLECT ORDERED SPUTUM SAMPLE THROUGHOUT SHIFT. PT WITHOUT PRODUCTIVE COUGH.
--- NOTE | 2019-03-13 19:00 | NUR ---
Report provided by MELYSSA Cat.
--- NOTE | 2019-03-13 21:30 | NUR ---
Upon assessment patient educated to keep O2 via nasal cannula on nostrils (running at 2L). Patient's lungs clear and no SOB. Patient at a 4/10 in L shoulder. Medication provided and patient repositioned. INT in R forearm patent. Patient reminded to provided a sputum sample if coughs anything up. Patient confirmed understanding.
[2019-03-13 22:11] VITALS: BP 96/57
--- NOTE | 2019-03-14 00:31 | NUR ---
Patient asleep in bed. CPAP machine on and properly positioned on patient's face.
[2019-03-14 02:00] VITALS: BP 137/71
--- NOTE | 2019-03-14 03:33 | NUR ---
Patient asleep with cpap in place.
[2019-03-14 05:41] VITALS: BP 123/77
--- NOTE | 2019-03-14 07:22 | NUR ---
Report given to MELYSSA Delatorre.
--- NOTE | 2019-03-14 08:00 | NUR ---
SEO ANALYST REPORTS PT HAS A STRONG WET COUGH, THIS NURSE COMPLETED COMPLEX ASSESSMENT, LUNGS COARSE THROUGHOUT WITH WHEEZES, PT BREATHING ON 2L O2 VIA NC, O2 SAT 94%, SIGNIFICANTLY MORE SOB WITH EXERTION, AURELIA LANG REQUESTING TO KEEP PT RATHER THAN DC BACK TO [facility] TODAY ORIGINIALLY PLANNED, PT AGREEABLE
[2019-03-14 10:05] VITALS: BP 119/66
[2019-03-14 14:20] VITALS: BP 138/79
--- NOTE | 2019-03-14 16:43 | NUR ---
PT NEEDS FREQUENT MOTIVATION TO MOVE FROM BED, RESISTANT TO HYGIENE AND ORAL CARES, RESISTANT TO SIT UP IN CHAIR MOST OF SHIFT, AGREES TO SIT UP IN CHAIR FOR SUPPER, THIS NURSE OPENED BLINDS TO ALLOW SUNLIGHT IN AND IS REQUESTING PT LEAVE HER LIGHTS ON FOR A WHILE IN ATTEMPTS TO HELP BRIGHTEN HER MOOD, WILL CONTINUE TO MOTIVATE PT FREQUENTLY
--- NOTE | 2019-03-14 17:18 | NUR ---
PT UP WALKING IN ROOM TO AND FROM RESTROOM, AGREED TO SIT UP FOR SUPPER, SMILING AFFECT, APPEARS TO BE MORE ALERT AND AGREEABLE TO MOVING AROUND ROOM, UNSTEADY SLOW GAIT WITH 1:1 ASSIST USING GAIT BELT AND WALKER
[2019-03-14 18:32] VITALS: BP 152/77
--- NOTE | 2019-03-14 19:00 | NUR ---
Report provided by MELYSSA Delatorre.
--- NOTE | 2019-03-14 19:45 | NUR ---
Patient laying supine in bed with O2 at 2L via NC. Patient reports pain in knees, ankles and arms. Patient educated that movement and changing positions will help encourage circulation and muscle strength and may reduce some of her pain. Lungs ausculated and show wheezes in Upper lobes. Patient educated that sitting up and IS and movement will help her lungs improve as well. Patient assisted to the bathroom and then the chair. Patient wanted to take her breathing treatments lying down in bed. Educated patient again on the importance of encouraging her airway and breathing through sitting up so as to allow air in her passageways more effectively. Patient agreed to stay sitting during the treatment at the chair. Patient did not want to stay in chair after medications were taken but agreed to stay sitting up until 2130 then she wanted to lay down again. Patient has +1 edema bilateral in lower extremities. She also stated that she feels constipated/bloated. Miralax provided along with her pain medication and other medications.
--- NOTE | 2019-03-14 21:15 | NUR ---
Patient returned to bed per request. O2 at 2L via NC.
[2019-03-14 21:41] VITALS: BP 120/62
--- NOTE | 2019-03-15 | NUR ---
Patient asleep in bed, supine with NC at 2L of 02. Patient non-compliant with CPAP.
--- NOTE | 2019-03-15 02:40 | NUR ---
Patient up to go tot bathroom after being woken up for vitals. Patient STBA back to bed. Patient educated on CPAP again. Regular NC removed and CPAP provided with O2 at 2L via full face mask of CPAP. Patient assisted with CPAP. Oxygen levels maintained at 92-93%.
[2019-03-15 02:41] VITALS: BP 119/69
[2019-03-15 05:45] VITALS: BP 131/74
--- NOTE | 2019-03-15 07:23 | NUR ---
Report to MELYSSA Ballesteros.
--- NOTE | 2019-03-15 07:30 | NUR ---
Report received from Adelaida Serrano RN and care assumed. Pt resting in bed with eyes closed and oxygen in place. No signs of distress or discomfort noted at this time. Call light in reach, bed alarm on.
[2019-03-15 10:06] VITALS: BP 127/80
--- NOTE | 2019-03-15 13:40 | NUR ---
Report given to Edis Quan and care transferred at this time. Pt resting in bed, no needs or concerns at this time. Eyes closed and no signs of distress or discomfort noted. Call light in reach, bed alarm on.
[2019-03-15 14:26] VITALS: BP 137/89
[2019-03-15] MEDS ORDERED: ZITHROMAX 250M250 MG PO (16:35)
[2019-03-15] MEDS ORDERED: PREDNISONE20 M1 PO (16:36)
[2019-03-15] MEDS ORDERED: CEFDINIR300 MG PO (16:36)
--- NOTE | 2019-03-15 18:19 | NUR ---
THIS RN GIVES HILARY CASTILLO REPORT ON THIS PT THE PT IS BEING DISCHARGED BACK TO [facility] WHERE THE PT RESIDES. JONATHAN DENIES HAVING ANY QUESTIONS OR CONCERNS AT THIS TIME.
--- NOTE | 2019-03-15 18:22 | NUR ---
THIS RN FAXES PT'S PRESCRIPTIONS TO [place] [facility] [place] PER REQUEST OF JONTAHAN AT [facility].
[2019-03-15 18:34] VITALS: BP 151/94
--- NOTE | 2019-03-15 19:55 | NUR ---
IV removed earlier this night with clear drainage when flushed; no errythema or edema at R a/c site noted. Pt was discharged per order; instructions given by another nurse--phoned to the nurse at [facility] facility (returning to same facility). Pt also understands discharge to return to same facility. Pt was escorted to that facility by staff member from this facility and from the LTC facility, taken via w/c with all belongings.
== END 2019-03-15 19:25 | DRG 192 ==
LOC: MED/SURG 16:21
PROVIDERS: ADMIT Physician Assistant
DX: J44.1 Chronic obstructive pulmonary disease with (acute) exacerbation (principal); F31.9 Bipolar disorder, unspecified; E03.9 Hypothyroidism, unspecified; G47.33 Obstructive sleep apnea (adult) (pediatric); D46.9 Myelodysplastic syndrome, unspecified; F17.210 Nicotine dependence, cigarettes, uncomplicated; Z79.82 Long term (current) use of aspirin; Z79.891 Long term (current) use of opiate analgesic; Z88.6 Allergy status to analgesic agent; Z85.118 Personal history of other malignant neoplasm of bronchus and lung
CPT/HCPCS: A4216; J0456; J0696; J1650; J2930; J7050

== ENCOUNTER 2019-04-20 12:57 | Emergency (ER) | payer MEDICARE ==
[~2019-04-20 12:57] MED LIST changes: +FLONASE ALLERG9.9 ML NS; +MECLIZINE PO; +PREDNISONE20 M1 PO; +ZITHROMAX 250M250 MG PO
[2019-04-20 14:10] LABS: HEMATOCRIT 33.3 % (37.0-47.0); HEMOGLOBIN 10.6 g/dL (12.5-16.0); MEAN CORPUSCULAR HGB CONC 32 g/dL (33-37); MEAN PLATELET VOLUME 9.7 fl (7.4-10.4); PLATELET COUNT 288 K/mm3 (130-400); RED BLOOD COUNT 2.39 M/mm3 (4.10-5.30); RED CELL DISTRIBUTION WIDTH 13.1 % (11.5-14.5); WHITE BLOOD COUNT 5.8 K/mm3 (4.8-10.8)
[2019-04-20 14:11] LABS: MEAN CELL VOLUME 139 fl (78-100); MEAN CORPUSCULAR HEMOGLOBIN 44 pg (27-31)
[2019-04-20 14:18] LABS: ALBUMIN 3.4 g/dL (3.4-4.8); POTASSIUM 4.6 mmol/L (3.5-5.1); SODIUM 139 mmol/L (136-145)
[2019-04-20 14:19] LABS: CALCIUM 8.4 mg/dL (8.3-10.5)
[2019-04-20 14:20] LABS: LYMPHOCYTE 8 % (20-51); MONOCYTE 11 % (3-10); NEUTROPHILS 80 % (42-75)
[2019-04-20 14:21] LABS: GLUCOSE 157 mg/dL (65-105); TOTAL PROTEIN 5.9 g/dL (6.2-8.1)
[2019-04-20 14:22] LABS: CARBON DIOXIDE 30 mmol/L (23-31); TOTAL BILIRUBIN 0.4 mg/dL (0.2-1.2)
[2019-04-20 14:26] LABS: AST-SGOT 14 U/L (5-34)
[2019-04-20 14:27] LABS: ALT/SGPT 9 U/L (0-55)
[2019-04-20 14:53] LABS: TROPONIN-I < 0.03 ng/mL (<0.030)
[2019-04-20 15:16] LABS: PH-URINE 6.5 (5.0 - 8.0); URINE APPEARANCE CLEAR; URINE BILIRUBIN NEGATIVE (NEGATIVE); URINE BLOOD NEGATIVE (NEGATIVE); URINE COLOR YELLOW; URINE GLUCOSE NEGATIVE (NEGATIVE); URINE KETONE NEGATIVE (NEGATIVE); URINE LEUKOCYTE ESTERASE NEGATIVE (NEGATIVE); URINE NITRATE NEGATIVE (NEGATIVE); URINE PROTEIN(semi-quant) TRACE mg/dL (NEGATIVE); URINE UROBILINOGEN NORMAL (NORMAL)
[2019-04-20 15:17] LABS: URINE MUCUS PRESENT (NOT PRESENT)
[2019-04-20 16:19] VITALS: BP 124/69
== END 2019-04-20 16:07 | disposition home or self-care (01) ==
LOC: ED 12:57
PROVIDERS: Family Medicine
DX: J44.9 Chronic obstructive pulmonary disease, unspecified (principal); C34.90 Malignant neoplasm of unspecified part of unspecified bronchus or lung; D46.9 Myelodysplastic syndrome, unspecified; R09.02 Hypoxemia; D69.6 Thrombocytopenia, unspecified; F20.9 Schizophrenia, unspecified

== ENCOUNTER → 2019-05-15 | Outpatient (CLI) | payer MEDICARE, MEDICAID ==
[2019-04-20 16:19] VITALS: BP 124/69
[2019-05-15 17:06] LABS: URINE COLOR YELLOW
[2019-05-15 17:07] LABS: PH-URINE 5.5 (5.0 - 8.0); URINE APPEARANCE CLEAR; URINE BILIRUBIN NEGATIVE (NEGATIVE); URINE BLOOD NEGATIVE (NEGATIVE); URINE GLUCOSE NEGATIVE (NEGATIVE); URINE KETONE NEGATIVE (NEGATIVE); URINE LEUKOCYTE ESTERASE TRACE (NEGATIVE); URINE NITRATE NEGATIVE (NEGATIVE); URINE PROTEIN(semi-quant) 1+ mg/dL (NEGATIVE); URINE UROBILINOGEN NORMAL (NORMAL)
== END ==
LOC: LAB 16:50
PROVIDERS: Internal Medicine
DX: R82.998 Other abnormal findings in urine (principal)

== ENCOUNTER → 2020-06-07 | Outpatient (CLI) | payer OTHER ==
[2020-06-07 12:35] LABS: URINE APPEARANCE HAZY; URINE BILIRUBIN NEGATIVE (NEGATIVE); URINE BLOOD 250 ery/uL (NEGATIVE); URINE COLOR YELLOW; URINE GLUCOSE NEGATIVE (NEGATIVE); URINE KETONE NEGATIVE (NEGATIVE); URINE LEUKOCYTE ESTERASE 2+ (NEGATIVE); URINE NITRATE NEGATIVE (NEGATIVE); URINE PROTEIN(semi-quant) NEGATIVE (NEGATIVE); URINE UROBILINOGEN NORMAL (NORMAL); URINE WBC >50 /hpf (0-3)
== END ==
LOC: LAB 11:58
PROVIDERS: Family Medicine
DX: N39.0 Urinary tract infection, site not specified (principal); N18.30 Chronic kidney disease, stage 3 unspecified

== ENCOUNTER → 2020-06-23 | Outpatient (CLI) | payer OTHER ==
[2020-06-23 07:26] LABS: URINE WBC 0 /hpf (0-3)
[2020-06-23 07:56] LABS: URINE APPEARANCE CLEAR; URINE BILIRUBIN NEGATIVE (NEGATIVE); URINE BLOOD NEGATIVE (NEGATIVE); URINE COLOR YELLOW; URINE GLUCOSE NEGATIVE (NEGATIVE); URINE KETONE NEGATIVE (NEGATIVE); URINE LEUKOCYTE ESTERASE NEGATIVE (NEGATIVE); URINE NITRATE NEGATIVE (NEGATIVE); URINE PROTEIN(semi-quant) NEGATIVE (NEGATIVE); URINE UROBILINOGEN NORMAL (NORMAL)
== END ==
LOC: LAB 07:16
PROVIDERS: Internal Medicine
DX: N39.0 Urinary tract infection, site not specified (principal)